=== PATIENT | female | born 1995 | race African-American/Black ===

== ENCOUNTER 2016-09-21 13:21 | Emergency (ER) | payer MEDICAID ==
[~2016-09-21] VITALS: Ht 177.8 cm; Wt 50.0 kg
[2016-09-21 13:32] VITALS: BP 111/63
[2016-09-21] MEDS ORDERED: MAGNESIUM/ALUMINUM HYDROXIDE/SIMETHICONE 30ML UDC PO STA (18:02)
[2016-09-21] MEDS ORDERED: VISCOUS LIDOCAINE 2% 15 ML UDC PO STA (18:02)
[2016-09-21 18:07] LABS: BASOPHILS % 0.9 % (0.0-2.0); EOSINOPHILS % 0.4 % (0.0-5.0); HEMATOCRIT. 36.6 % (36.0-48.0); HEMOGLOBIN. 12.3 g/dL (12.0-16.0); LYMPHOCYTES % 40.8 % (20.0-50.0); MEAN CORPUSCULAR HEMOGLOBIN 27.6 pg (28.0-32.0); MEAN CORPUSCULAR VOLUME 82.1 fL (81.0-99.0); MEAN PLATELET VOLUME 8.1 fl (7.4-10.4); MONOCYTES % 6.5 % (2.0-8.0); NEUTROPHILS % 51.4 % (40.0-76.0); PLATELET 263 x1000/uL (130-400); RED BLOOD CELL COUNT 4.46 mill/uL (4.2-5.4)
[2016-09-21 18:09] LABS: CLARITY URINE CLEAR (CLEAR); COLOR URINE YELLOW (YELLOW); GLUCOSE URINE NEGATIVE (NEGATIVE); KETONES URINE 1+ (NEGATIVE); LEUKOCYTE ESTERASE URINE NEGATIVE (NEGATIVE); NITRITE URINE NEGATIVE (NEGATIVE); OCCULT BLOOD URINE NEGATIVE (NEGATIVE); PH URINE 6.5 (4.5-8.0); PROTEIN URINE NEGATIVE (NEGATIVE); SPECIFIC GRAVITY URINE 1.019 (1.005-1.030)
[2016-09-21 18:11] LABS: INR 1.1; PROTHROMBIN TIME 11.6 sec
[2016-09-21 18:19] LABS: CARBON DIOXIDE 28 mEq/L (21-32); CHLORIDE 103 mEq/L (98-107)
== END 2016-09-21 18:00 | disposition left against medical advice (07) ==
LOC: ER 16:44
DX: R10.13 Epigastric pain (principal); J45.909 Unspecified asthma, uncomplicated
CPT/HCPCS: 36415; 80053; 81003; 83690; 85025; 85610; 99284

== ENCOUNTER 2017-02-06 07:50 | Emergency (ER) | payer MEDICAID ==
[~2017-02-06] VITALS: Ht 180.3 cm; Wt 55.0 kg
[2017-02-06] MEDS ORDERED: [UNRECOGNIZED DRUG - REMARK] (08:03)
[2017-02-06] MEDS ORDERED: KETOROLAC 30MG/ML VIAL IV ONE (08:45)
[2017-02-06] MEDS ORDERED: DICYCLOMINE HCL 10MG CAPSULE PO ONE (08:45)
[2017-02-06] MEDS ORDERED: SUCRALFATE 1G TABLET PO SCH (09:00)
[2017-02-06] MEDS ORDERED: FAMOTIDINE 20MG/2ML VIAL IV SCH (09:00)
[2017-02-06 09:16] LABS: BASOPHILS % 0.9 % (0.0-2.0); EOSINOPHILS % 0.8 % (0.0-5.0); HEMATOCRIT. 37.4 % (36.0-48.0); HEMOGLOBIN. 12.7 g/dL (12.0-16.0); LYMPHOCYTES % 42.7 % (20.0-50.0); MEAN CORPUSCULAR HEMOGLOBIN 28.9 pg (28.0-32.0); MEAN PLATELET VOLUME 8.1 fl (7.4-10.4); MONOCYTES % 9.3 % (2.0-8.0); NEUTROPHILS % 46.3 % (40.0-76.0); PLATELET 253 x1000/uL (130-400); RED CELL DISTRIBUTION WIDTH 13.7 % (11.6-14.6)
[2017-02-06 09:24] LABS: CHLORIDE 106 mEq/L (98-107)
[2017-02-06 09:26] LABS: CLARITY URINE CLEAR (CLEAR); COLOR URINE YELLOW (YELLOW); GLUCOSE URINE NEGATIVE (NEGATIVE); KETONES URINE NEGATIVE (NEGATIVE); LEUKOCYTE ESTERASE URINE NEGATIVE (NEGATIVE); NITRITE URINE NEGATIVE (NEGATIVE); OCCULT BLOOD URINE NEGATIVE (NEGATIVE); PROTEIN URINE NEGATIVE (NEGATIVE); SPECIFIC GRAVITY URINE 1.023 (1.005-1.030)
[2017-02-06 09:33] LABS: CARBON DIOXIDE 26 mEq/L (21-32)
[2017-02-06 13:00] VITALS: BP 99/56
== END 2017-02-06 13:00 | disposition home or self-care (01) ==
LOC: ER 07:55
DX: R10.9 Unspecified abdominal pain (principal); R03.0 Elevated blood-pressure reading, without diagnosis of hypertension; J45.909 Unspecified asthma, uncomplicated
CPT/HCPCS: 36415; 76705; 80053; 81003; 81025; 83690; 85025; 96374; 96375; 99285; J1885; J3490; Z7610

== ENCOUNTER 2017-07-09 13:31 | Emergency (ER) | payer MEDICAID, OTHER ==
[~2017-07-09] VITALS: Ht 180.3 cm; Wt 48.0 kg
[~2017-07-09 13:31] MED LIST: [UNRECOGNIZED DRUG - REMARK]
[2017-07-09 15:24] VITALS: BP 113/65
== END 2017-07-09 19:43 | disposition left against medical advice (07) ==
LOC: ER 15:43
DX: R42 Dizziness and giddiness (principal)
CPT/HCPCS: 99281

== ENCOUNTER 2022-03-30 15:07 | Emergency (ER) | payer MEDICAID, OTHER ==
[~2022-03-30] VITALS: Ht 177.8 cm; Wt 100.0 kg
[2022-03-30 18:49] LABS: BASOPHILS % 0.4 % (0.0-2.0); EOSINOPHILS % 0.3 % (0.0-5.0); HEMATOCRIT. 34.4 % (36.0-48.0); HEMOGLOBIN. 11.8 g/dL (12.0-16.0); LYMPHOCYTES % 25.5 % (20.0-50.0); MEAN CORPUSCULAR VOLUME 78.4 fL (81.0-99.0); MEAN PLATELET VOLUME 7.8 fl (7.4-10.4); MONOCYTES % 7.9 % (2.0-8.0); NEUTROPHILS % 65.9 % (40.0-76.0); PLATELET 332 x1000/uL (130-400); RED BLOOD CELL COUNT 4.38 mill/uL (4.2-5.4); RED CELL DISTRIBUTION WIDTH 13.9 % (11.6-14.6)
[2022-03-30 19:03] LABS: CHLORIDE 102 mEq/L (98-107)
[2022-03-30 19:26] LABS: B-HCG QUANTITATIVE 46528 mIU/mL (<3)
[2022-03-30 20:59] LABS: CLARITY URINE CLEAR (CLEAR); COLOR URINE YELLOW (YELLOW); KETONES URINE 1+ (NEGATIVE); LEUKOCYTE ESTERASE URINE NEGATIVE (NEGATIVE); NITRITE URINE NEGATIVE (NEGATIVE); OCCULT BLOOD URINE NEGATIVE (NEGATIVE); PROTEIN URINE NEGATIVE (NEGATIVE)
[2022-03-30 21:30] VITALS: BP 124/78
== END 2022-03-30 21:30 | disposition home or self-care (01) ==
LOC: ER 15:07
DX: O20.9 Hemorrhage in early pregnancy, unspecified (principal); Z3A.13 13 weeks gestation of pregnancy; O26.891 Other specified pregnancy related conditions, first trimester; R10.32 Left lower quadrant pain; M54.59 Other low back pain
CPT/HCPCS: 36415; 76801; 80053; 81003; 81025; 84702; 85025; 86850; 86900; 93976; 99284

== ENCOUNTER 2024-03-09 06:43 | Emergency (ER) | payer OTHER ==
[~2024-03-09] VITALS: Ht 167.6 cm; Wt 84.0 kg
[2024-03-09 06:57] VITALS: O2SAT 100
[2024-03-09] MEDS ORDERED: CYCL5TAB3 MT (09:46)
[2024-03-09] MEDS ORDERED: IBUP-2030 MT (09:46)
[2024-03-09] MEDS: KETOROLAC 30MG/ML VIAL IM ONE (10:10)
[2024-03-09 10:11] VITALS: BP 115/67
[2024-03-09] MEDS: LIDOCAINE 5% PATCH TOP SCH (10:11)
[2024-03-09] MEDS: HYDROCODONE/ACETAMINOPHEN 10/325MG TABLET PO ONE (10:11)
[2024-03-09 10:14] VITALS: PULSE 82; RESP 18; TEMP 36.94740; O2SAT 100
== END 2024-03-09 10:15 | disposition home or self-care (01) ==
LOC: ER 07:08
DX: M54.2 Cervicalgia (principal); M62.838 Other muscle spasm
CPT/HCPCS: 99283; 96372; J1885